=== PATIENT | male | born 1970 | race Caucasian/White ===

== ENCOUNTER 2016-12-16 05:57 | Inpatient (IN) | payer BC ==
[2016-12-10 16:35] LABS: HEMATOCRIT 42.4 % (40.0-51.0); HEMOGLOBIN 14.8 g/dL (13.6-17.8)
--- NOTE | ~2016-12-16 | OP ---
Record Of Operation [address] [place]. [address] NAME: KALPANA LOPEZ : 72 STATUS : ADM IN PAT#: [id number] AGE: 46 ADM/REG DATE : 12/16/16 MR#: [id number] REPORT SERV DATE: 12/16/16 DICTATED BY: KATHERIN CASTANON DATE: 12/16/16 REPORT STATUS : Draft TRANSCRIBED BY: MODWilda DATE: 12/16/16 DATE OF PROCEDURE: 12/16/2016 RESIDENT: Rema Fuentes M.D. PREOPERATIVE DIAGNOSES: 1. Undesired stoma. 2. Previous history of Citlalli's procedure for perforated diverticulitis. POSTOPERATIVE DIAGNOSIS: 1. Undesired stoma. 2. Previous history of Citlalli's procedure for perforated diverticulitis. PROCEDURE: 1. Single incision laparoscopic, colostomy reversal with colorectal anastomosis. 2. Extensive lysis of adhesions. ANESTHESIA: General endotracheal anesthesia with TAP blocks provided by the Anesthesia Service. IV FLUIDS: 1300 mL. ESTIMATED BLOOD LOSS: 40 mL. URINE OUTPUT: 250 mL. DRAINS: None. SPECIMEN: Anastomotic rings. CULTURES: None. COMPLICATIONS: None apparent. INDICATIONS: Mr. Lopez is a 46-year-old man who previously underwent Citlalli's procedure for perforated diverticulitis. He had an undesired stoma and desired a closure of his Citlalli's procedure. Preoperatively, benefits, alternatives, and risks including bleeding, infection, risk of damage to adjacent structures including ureter and small bowel wall, possible need for future procedures as well as risks of general endotracheal anesthesia were discussed in detailed with the patient preoperatively by Dr. Castanon. After having all questions answered, the patient voiced understanding of these risks and desired to proceed with surgery. PROCEDURE IN DETAIL: The patient was identified preoperatively as Kalpana Lopez where it was determined that the appropriately signed documents including history and physical and operative permit were secured on the chart. He was taken to the operating room and placed Record Of [address] [place]. [address] NAME: KALPANA LOPEZ : 72 STATUS : ADM IN PAT#: [id number] AGE: 46 ADM/REG DATE : 12/16/16 MR#: [id number] REPORT SERV DATE: 12/16/16 DICTATED BY: KATHERIN CASTANON DATE: 12/16/16 REPORT STATUS : Draft TRANSCRIBED BY: MODL DATE: 12/16/16 supine on the operative table where general endotracheal anesthesia was induced by the Anesthesia Service who monitored the patient throughout the procedure. Next, the patient was placed in lithotomy position with both arms tucked and an appropriate time-out procedure was completed wherein the patient, procedure site, positioning, allergies, equipment, and administration of antibiotics were verified prior to beginning. IV antibiotics and subcutaneous heparin were administered. A Bautista catheter and orogastric tube were placed. All extremities were well padded. The rectum was irrigated with saline solution. The abdomen was clipped and prepped and draped in the usual sterile fashion. The mucocutaneous junction around the colostomy was incised sharply. This was then carried down the subcutaneous plane with a combination of electrocautery and sharp dissection until the fascia was reached and the bowel was dissected circumferentially and freed from the abdominal wall. Limited adhesiolysis was performed through the stoma wound and a short segment of the descending colon was mobilized. It was inspected in the colostomy portion and the bowel was trimmed. Next, a 2-0 Prolene suture was used as a pursestring and a 29 EEA anvil was placed and the pursestring was tied. The adherent fat was from the end of the colon and then the descending colon was reduced inside the abdominal cavity. Using a wound protector and a GelPort system inserted through the previous colostomy site, a pneumoperitoneum was achieved and three trocars were placed through the GelPort. Extensive adhesiolysis was performed not only between the bowel and the omentum and the anterior abdominal wall but also between the small bowel and the rectal stump and the small bowel and the descending colon. Secondary to an extensive amount of time spent in adhesiolysis, a 22- modifier is being applied to this case. Splenic flexure had previously been partially mobilized such that the colostomy could be created; however, after checking the length of the descending colon section, additional mobilization of the splenic flexure and along the lateral sidewall was undertaken. Once we determined enough length, the rectal dilator was introduced transanally and advanced to the apex of the rectal stump. The stump was mobilized off the pelvic sidewall. The dilator was then exchanged for a 29 EEA stapler and a stapled end to anterior rectal side anastomosis was performed under direct visualization. Anastomosis was then tested by insufflating the rectum transanally after submerging the pelvis with saline solution and gently occluding the proximal descending colon. No air leak was noted. The pelvis was irrigated and suctioned free irrigant. The GelPort was removed and the abdomen was allowed to desufflate completely. The posterior fascia was closed at the colostomy site with a running suture of PDS. The anterior fascia was then closed similarly. The wound was irrigated well and suctioned free of irrigant and Vicryl suture was used to reapproximate the Peggy's. The wound was then again irrigated and the skin was reapproximated in a pursestring fashion such that the center portion of the wound was left open to drain. This was then dressed with 4x4s and tape. This ended the surgical procedure. All counts of needles, sponges, and instruments were correct at the end of the case. Dr. Castanon was present and scrubbed for the entirety of the surgical procedure. No intraoperative complications were noted. The patient was allowed to awaken and extubated in the operating room and taken to the postanesthesia care unit in good condition after having tolerated the procedure well. DICTATED BY: Rema Fuentes MD [facility] Record Of [address] [address] NAME: KALPANA LOPEZ : 72 STATUS : ADM IN [facility]#: [id number] AGE: 46 ADM/REG DATE : 12/16/16 MR#: [id number] REPORT SERV DATE: 12/16/16 DICTATED BY: KATHERIN CASTANON DATE: 12/16/16 REPORT STATUS : Draft TRANSCRIBED BY: MODWilda DATE: 12/16/16 Katherin Castanon MD / [id number] CC: Katherin Castanon MD
[~2016-12-16 05:57] MED LIST: LEVOTHYROXIN112 MCG PO; SYN125 PO; VITD PO
[2016-12-16 12:10] LABS: HEMATOCRIT 46.3 % (40.0-51.0); HEMOGLOBIN 15.9 g/dL (13.6-17.8)
[2016-12-17 06:56] LABS: BASOPHILS 0.1 %; BASOPHILS ABSOLUTE 0.01 10/3/uL (0.0-0.16); EOSINOPHILS 0 %; HEMATOCRIT 42.8 % (40.0-51.0); HEMOGLOBIN 14.5 g/dL (13.6-17.8); IMMATURE GRANULOCYTES 0.3 %; IMMATURE GRANULOCYTES ABSOLUTE 0.05 10/3/uL (0.0-0.11); LYMPHOCYTES 12.7 %; LYMPHOCYTES ABSOLUTE 1.89 10/3/uL (0.67-4.30); MEAN CORPUS HGB CONC 33.9 g/dL (32.0-36.0); MEAN CORPUSCULAR HEMOGLOB 29.4 pg (26.0-34.0); MEAN CORPUSCULAR VOLUME 86.6 fL (80-100); MEAN PLATELET VOLUME 11.4 fL (9.2-13.0); MONOCYTES 8.4 %; MONOCYTES ABSOLUTE 1.25 10/3/uL (0.21-1.20); NEUTROPHILS 78.5 %; NEUTROPHILS ABSOLUTE 11.69 10/3/uL (2.02-8.40); PLATELET COUNT 241 10/3/uL (150-400); RED CELL COUNT 4.94 10/6/uL (4.7-6.1); WHITE BLOOD CELLS 14.9 10/3/uL (4.5-10.5)
[2016-12-17 06:59] LABS: MANUAL DIFF NO %
[2016-12-17 07:08] LABS: BUN (BLOOD UREA NITROGEN) 13 MG/DL (6-23); CALCIUM, SERUM 8.5 MG/DL (8.5-10.4); CHLORIDE, SERUM 104 MMOL/L (96-112); CO2 (CARBON DIOXIDE) 26 MMOL/L (24-34); CREATININE 1.15 MG/DL (0.70-1.30); GFR AFRICAN AMERICAN 89 ML/MIN (>=60); GFR NON AFRICAN AMERICAN 76 ML/MIN (>=60); POTASSIUM, SERUM 4.2 MMOL/L (3.5-5.3); SODIUM, SERUM 138 MMOL/L (135-148)
[2016-12-17 07:09] LABS: GLUCOSE, SERUM 116 MG/DL (60-99)
[2016-12-17] MEDS ORDERED: OXYCOD PO (09:10)
[2016-12-17] MEDS ORDERED: ACET500CAP PO (09:12)
== END 2016-12-17 18:00 | disposition home or self-care (01) | DRG 331 ==
LOC: SDC/OF 05:57 → PACU 11:40 → 4SO 18:48
PROVIDERS: Surgery
PROC: 0DNE4ZZ Release Large Intestine, Percutaneous Endoscopic Approach (ICD-10-PCS; principal; 2016-12-16 07:45)
PROC: 0DBM4ZZ Excision of Descending Colon, Percutaneous Endoscopic Approach (ICD-10-PCS; principal; 2016-12-16 07:45)
PROC: 0DN84ZZ Release Small Intestine, Percutaneous Endoscopic Approach (ICD-10-PCS; principal; 2016-12-16 07:45)
PROC: 0DNT4ZZ (ICD-10-PCS; principal; 2016-12-16 07:45)
PROC: 0DNM4ZZ Release Descending Colon, Percutaneous Endoscopic Approach (ICD-10-PCS; principal; 2016-12-16 07:45)
PROC: 0DNP4ZZ Release Rectum, Percutaneous Endoscopic Approach (ICD-10-PCS; principal; 2016-12-16 07:45)
DX: Z43.3 Encounter for attention to colostomy (principal); I10 Essential (primary) hypertension; K66.0 Peritoneal adhesions (postprocedural) (postinfection); E03.9 Hypothyroidism, unspecified; Z88.5 Allergy status to narcotic agent; Z88.8 Allergy status to other drugs, medicaments and biological substances; K57.90 Diverticulosis of intestine, part unspecified, without perforation or abscess without bleeding; L29.9 Pruritus, unspecified
CPT/HCPCS: 80048; 85014; 85018; 85025; 88304; A9270-GY; J0690; J1200; J2185; J2250; J2405; J2710; J2795; J3010

== ENCOUNTER 2017-02-10 13:26 | Emergency (ER) | payer BC ==
[2017-02-10 11:14] LABS: BASOPHILS 0.5 %; BASOPHILS ABSOLUTE 0.04 10/3/uL (0.0-0.16); EOSINOPHILS 1.1 %; EOSINOPHILS ABSOLUTE 0.08 10/3/uL (0.0-0.53); HEMATOCRIT 43.8 % (40.0-51.0); HEMOGLOBIN 14.9 g/dL (13.6-17.8); IMMATURE GRANULOCYTES 0.5 %; IMMATURE GRANULOCYTES ABSOLUTE 0.04 10/3/uL (0.0-0.11); LYMPHOCYTES ABSOLUTE 2.03 10/3/uL (0.67-4.30); MEAN CORPUSCULAR HEMOGLOB 29.1 pg (26.0-34.0); MEAN CORPUSCULAR VOLUME 85.5 fL (80-100); MEAN PLATELET VOLUME 11.6 fL (9.2-13.0); MONOCYTES 7.2 %; MONOCYTES ABSOLUTE 0.54 10/3/uL (0.21-1.20); NEUTROPHILS 63.7 %; PLATELET COUNT 192 10/3/uL (150-400); RBC DISTRIBUTION WIDTH 13.1 % (12.0-16.0); RED CELL COUNT 5.12 10/6/uL (4.7-6.1)
[2017-02-10 11:16] LABS: ER CBC TAT 0 Hrs 05 Mins; MANUAL DIFF NO %; WHITE BLOOD CELLS 7.5 10/3/uL (4.5-10.5)
[2017-02-10 11:27] LABS: PARTIAL THROMBO TIME 32.6 SEC (22.5-37.2); PROTIME (NOT ORD) 13.3 SEC (12.0-14.5)
[2017-02-10 11:34] LABS: BUN (BLOOD UREA NITROGEN) 18 MG/DL (6-23); CALCIUM, SERUM 9.3 MG/DL (8.5-10.4); CHEST PAIN PROFILE TAT 0 Hrs 23 Mins; CHLORIDE, SERUM 104 MMOL/L (96-112); CO2 (CARBON DIOXIDE) 28 MMOL/L (24-34); CREATININE 0.92 MG/DL (0.70-1.30); GFR AFRICAN AMERICAN 116 ML/MIN (>=60); GFR NON AFRICAN AMERICAN 100 ML/MIN (>=60); GLUCOSE, SERUM 98 MG/DL (60-99); POTASSIUM, SERUM 4.4 MMOL/L (3.5-5.3); SODIUM, SERUM 138 MMOL/L (135-148); TROPONIN I <0.02 NG/ML (<0.05)
[~2017-02-10 13:26] MED LIST changes: +ACET500CAP PO; +OXYCOD PO
[2017-02-16 16:13] LABS: RICKETTSIA TYPHI AB IGG <1:64 (LTD64); RICKETTSIA TYPHI AB IGM <1:64 (LTD64); ROCKY MTN SPOTTED FEVER AB IGM <1:64 (LTD64)
== END 2017-02-10 13:40 | disposition home or self-care (01) ==
LOC: ER 13:26
PROVIDERS: Emergency Medicine
DX: R00.0 Tachycardia, unspecified (principal); I10 Essential (primary) hypertension; T14.8 Other injury of unspecified body region; Z91.041 Radiographic dye allergy status; Z79.899 Other long term (current) drug therapy; W57.XXXA Bitten or stung by nonvenomous insect and other nonvenomous arthropods, initial encounter
CPT/HCPCS: 71010; 80048; 83735; 84484; 85025; 85610; 85730; 86757; 86757-59; 93005; 93225; 99285